=== PATIENT | female | born 1995 | race Two or more races ===

== ENCOUNTER 2017-10-24 22:41 | Emergency (ER) | payer SELFPAY ==
[~2017-10-24] VITALS: Ht 165.1 cm; Wt 63.5 kg
[2017-10-25 06:27] VITALS: BP 117/72
[2017-10-25] MEDS ORDERED: KETOROLAC TROMETH 60MG/2ML VIAL IM ONE (06:30)
== END 2017-10-25 06:44 | disposition home or self-care (01) ==
LOC: EDBD 22:41 → ER 23:01
DX: S39.012A Strain of muscle, fascia and tendon of lower back, initial encounter (principal); S00.83XA Contusion of other part of head, initial encounter; V43.62XA Car passenger injured in collision with other type car in traffic accident, initial encounter; Y93.89 Activity, other specified; Y99.8 Other external cause status; Y92.410 Unspecified street and highway as the place of occurrence of the external cause
CPT/HCPCS: 70450; 72125; 72128; 72131; 81025; 96372; 99285; J1885